=== PATIENT | female | born 2000 | race Caucasian/White ===

== ENCOUNTER 2023-01-17 19:12 | Inpatient (IN) ==
[2023-01-17 20:14] LABS: Appearance Urine Clear (Clear); Bilirubin Urine Negative (Negative); Blood Urine Negative (Negative); Color Urine Yellow; Glucose Urine UA Negative (Negative); Ketones Urine Negative (Negative); Leukocyte Esterase Urine Negative (Negative); Nitrite Urine Negative (Negative); Protein Urine Negative (Negative); Specific Gravity Urine 1.019 (1.000-1.030); Urobilinogen Urine Negative (Negative)
[2023-01-17 20:16] LABS: Pregnancy Test, Urine Negative (Negative)
[2023-01-17 20:26] LABS: Basophils # (auto) 0.06 K/uL (0.00-0.20); Basophils % (auto) 0.7 %; Eosinophils # (auto) 0.13 K/uL (0.00-0.50); Eosinophils % (auto) 1.5 %; Hemoglobin 15.2 g/dl (12.0-16.0); Immature Granulocytes # (auto) 0.02 K/uL (0.01-0.20); Immature Granulocytes % (auto) 0.2 %; Lymphocytes # (auto) 2.05 K/uL (1.20-3.40); Lymphocytes % (auto) 24.3 %; Mean Corpuscular Hgb Conc 34.5 g/dL (32.0-36.0); Mean Corpuscular Volume 83.8 fL (80.0-100.0); Mean Platelet Volume 9.9 fL (9.4-12.4); Monocytes # (auto) 0.52 K/uL (0.11-0.59); Monocytes % (auto) 6.2 %; Neutrophils # (auto) 5.67 K/uL (1.40-6.50); Neutrophils % (auto) 67.1 %; Platelet Count 316 K/uL (130-400); RDW Coefficient of Variation 12.9 % (11.5-14.5); RDW Standard Deviation 39.7 fL (36.4-46.3); Red Blood Count 5.25 M/uL (4.20-5.40); White Blood Count 8.45 K/ul (4.8-10.8)
[2023-01-17 20:44] LABS: Alanine Aminotransferase 10 U/L (7-52); Albumin Globulin Ratio 1.5 (0.9-2); Albumin Level 4.7 gm/dl (3.4-5.0); Alkaline Phosphatase 70 U/L (34-104); Anion Gap 6 (3-11); Aspartate Aminotransferase 14 U/L (13-39); BUN Creatinine Ratio 21.6 (10-20); Bilirubin,Total 0.3 mg/dl (0.2-1.0); Blood Urea Nitrogen 11 mg/dl (6-23); Calcium 9.2 mg/dl (8.6-10.3); Carbon Dioxide 27 mmol/L (21-32); Chloride 105 mmol/L (98-107); Creatinine Clr Calc Pharmacy 125.3 ml/min; Est GFR (African American) > 150.0 ml/min; Est GFR (Non-African American) 137.5 ml/min; Globulin 3.1 gm/dl (2.5-4.0); Glucose 108 mg/dl (70-99(Fasting)); Potassium 4.1 mmol/L (3.5-5.1); Sodium 138 mmol/L (136-145); Total Protein 7.8 gm/dl (6.0-8.3)
[2023-01-17 20:47] LABS: Acetaminophen < 3 ug/ml (10-30); Salicylate < 3.0 mg/dl (3.0-30)
[2023-01-17 20:49] LABS: Amphetamines+Metham, Urine Neg (Neg); Barbiturates, Urine Neg (Neg); Benzodiazepine, Urine Neg (Neg); Cocaine, Urine Neg (Neg); MDMA (Ecstacy), Urine Neg (Neg); Methadone, Urine Neg (Neg); Opiate, Urine Neg (Neg); Phencyclidine, Urine Neg (Neg)
--- NOTE | 2023-01-17 21:44 | Emergency Department Note ---
Impression & Plan Depression, Suicidal ideation ED Provider Note NAME: ADALGISA HILLS AGE: 22 SEX: F ARRIVES VIA: Walk-In INFORMANT: Patient ED PROVIDER(S): Rene Lawson MD CHIEF COMPLAINT: Depression, suicidal ideation PLAN: Disposition: Inpatient psychiatric admission, 3S. MEDICAL DECISION MAKING: The patient is a 22-year-old woman, [employer] student who presents to the emergency department via walk-in for evaluation of worsening depression and suicidal ideation which occurs in the setting of breaking up with her boyfriend last night but already feeling overwhelmed about returning to school. She reports she has had intermittent thoughts of hurting herself by cutting. She reports prior history when she was younger of depression and suicidal ideation. She reports she is not on medications because she reports that her parents have been against this and does not feel comfortable opening up about her mental health with her family. The patient reports she lives in the dorms by herself. She feels as though she is "not good enough". The patient reports that she feels that she cannot be alone by herself at this time as she would feel unsafe. She has any recent illness including fevers, chills, cough, congestion, GI/ symptoms. On my evaluation accompanied by mental health block and case maker the patient is melancholy appearing in no acute distress, afebrile stable vital signs. She endorses depression and intermittent suicidal ideation. She denies current active thoughts of suicidal ideation but did have thoughts of cutting herself to last week. She is in agreement with voluntary psychiatric admission. WBC, H/H and platelets within normal limits. Chemistry without metabolic acidosis. Electrolytes LFTs unremarkable. TSH within normal limits. UA without evidence of infection. Drug screen was unremarkable. COVID-19 RNA, FRANCISCA test was negative. Patient is medically cleared. Referral will be placed for inpatient psychiatric treatment. Patient was evaluated by 3S. and was excepted for inpatient psychiatric treatment. 201 was signed. Triage Nursing notes reviewed and agree them. Prior/outside medical records reviewed Vital Signs: reviewed Differential diagnosis: Mood disorder, infection, hypoglycemia, electrolyte abnormalities, cardiac sources, intracerebral event, toxicologic, trauma, neurologic, as well as other pathologies. ER treatment provided: See below. Laboratory studies: See below HPI: The patient is a 22-year-old woman, [employer] student who presents to the emergency department via walk-in for evaluation of worsening depression and suicidal ideation which occurs in the setting of breaking up with her boyfriend last night but already feeling overwhelmed about returning to school. She reports she has had intermittent thoughts of hurting herself by cutting. She reports prior history when she was younger of depression and suicidal ideation. She reports she is not on medications because she reports that her parents have been against this and does not feel comfortable opening up about her mental health with her family. The patient reports she lives in the dorms by herself. She feels as though she is "not good enough". The patient reports that she feels that she cannot be alone by herself at this time as she would feel unsafe. She has any recent illness including fevers, chills, cough, congestion, GI/ symptoms. ROS: See above HPI for pertinent positives & negatives. A total of 10 systems reviewed and were otherwise negative. VITALS:See Below PHYSICAL EXAMINATION: GENERAL: Awake, alert, melancholy-appearing, in no distress HENT: Normocephalic, atraumatic. Oropharynx unremarkable. EYES: Normal conjunctiva. Sclera non-icteric. NECK: Supple. No nuchal rigidity. FROM. No JVD. RESPIRATORY: Clear to auscultation. CARDIAC: Regular rate, normal rhythm. Extremities warm and well perfused. Pulses equal. ABDOMEN: Soft, non-distended. No tenderness to palpation. No rebound or guarding. No masses. RECTAL: Deferred. MUSCULOSKELETAL: Chest examination reveals no tenderness. The back is symmetrical on inspection without obvious abnormality. There is no CVA tenderness to palpation. No joint edema. LOWER EXTREMITIES: Calves are equal size bilaterally and non-tender. No edema. No discoloration. NEURO: Normal sensorium. No sensory or motor deficits noted. SKIN: No rash or jaundice noted. PSYCH: Endorses depression, intermittent suicidal ideation. Rene Lawson MD Past Med/Surg History Medical History Depression Surgical History No significant past surgical history Social History Smoking Status: Never smoker Preferred Language: Turkmen [employer] Required: No Beliefs That Will Affect Care: None marital status: Single current occupational status: student Feels Safe at Home: Yes Gender Identity: Female Assistive Devices: Glasses Allergies Allergies Allergy/AdvReac Type Severity Reaction Status Date / Time No Known Allergies Allergy Verified 08/03/22 23:31 Home Meds Home Medications Medication Instructions Recorded Confirmed No Known Home Medications 08/03/22 08/03/22 Results & Data (ED) Vital Signs Vital Signs - 24 hr 01/17/23 19:26 01/17/23 23:15 Temperature 36.9 C Temperature Source Temporal Artery Scan Pulse Rate 107 H Respiratory Rate 16 Blood Pressure 127/83 Blood Pressure Mean 97 Pulse Oximetry 99 Oxygen Delivery Method Room Air Room Air Sepsis Recent Fever Within 48 Hours No Sepsis New/Unexplained Change in Mental Status N/A Sepsis Action Taken by Nursing No Action Required Laboratory Data Attestation: I reviewed the patient's lab results. 01/17/23 20:00 01/17/23 20:00 Lab Results 01/17/23 01/17/23 01/17/23 Range/Units 19:45 19:45 19:55 WBC (4.8-10.8) K/ul RBC (4.20-5.40) M/uL Hgb (12.0-16.0) g/dl Hct (37.0-47.0) % MCV (80.0-100.0) fL MCH (25.0-34.0) pg MCHC (32.0-36.0) g/dL RDW Std Deviation (36.4-46.3) fL RDW Coeff of Geovanny (11.5-14.5) % Plt Count (130-400) K/uL MPV (9.4-12.4) fL Immature Gran % (Auto) % Neut % (Auto) % Lymph % (Auto) % [place] % (Auto) % Eos % (Auto) % Baso % (Auto) % Neut # (Auto) (1.40-6.50) K/uL Lymph # (Auto) (1.20-3.40) K/uL [place] # (Auto) (0.11-0.59) K/uL Eos # (Auto) (0.00-0.50) K/uL Baso # (Auto) (0.00-0.20) K/uL Immature Gran # (Auto) (0.01-0.20) K/uL Sodium (136-145) mmol/L Potassium (3.5-5.1) mmol/L Chloride (98-107) mmol/L Carbon Dioxide (21-32) mmol/L Anion Gap (3-11) BUN (6-23) mg/dl Creatinine (0.6-1.2) mg/dl Est Cr Clr Drug Dosing ml/min Est GFR ( Amer) ml/min Est GFR (Non-Af Amer) ml/min BUN/Creatinine Ratio (10-20) Glucose (70-99(Fasting)) mg/dl Calcium (8.6-10.3) mg/dl Total Bilirubin (0.2-1.0) mg/dl AST (13-39) U/L ALT (7-52) U/L Alkaline Phosphatase (34-104) U/L Total Protein (6.0-8.3) gm/dl Albumin (3.4-5.0) gm/dl Globulin (2.5-4.0) gm/dl Albumin/Globulin Ratio (0.9-2) TSH (0.300-4.500) uIu/ml Urine Color Yellow Urine Appearance Clear (Clear) Urine pH 6.0 (4.5-7.5) Ur Specific [place] 1.019 (1.000-1.030) Urine Protein Negative (Negative) Urine Glucose (UA) Negative (Negative) Urine Ketones Negative (Negative) Urine Blood Negative (Negative) Urine Nitrite Negative (Negative) Urine Bilirubin Negative (Negative) Urine Urobilinogen Negative (Negative) Ur Leukocyte Esterase Negative (Negative) Urine Test (Negative) Salicylates (3.0-30) mg/dl Urine Opiates Screen Neg (Neg) Ur Methadone, Qual Neg (Neg) Acetaminophen (10-30) ug/ml Urine Barbiturates Neg (Neg) Ur Phencyclidine (PCP) Neg (Neg) U Amphetamin/Meth Scrn Neg (Neg) MDMA (Ecstasy) Screen Neg (Neg) U Benzodiazepines Scrn Neg (Neg) Ur Cocaine Metabolite Neg (Neg) U Marijuana (THC) Screen Neg (Neg) Ethyl Alcohol mg/dL (<10.0) mg/dl SARS-CoV-2, RNA, NAAT NEGATIVE (NEGATIVE) 01/17/23 01/17/23 01/17/23 Range/Units 19:59 20:00 20:00 WBC 8.45 (4.8-10.8) K/ul RBC 5.25 (4.20-5.40) M/uL Hgb 15.2 (12.0-16.0) g/dl Hct 44.0 (37.0-47.0) % MCV 83.8 (80.0-100.0) fL MCH 29.0 (25.0-34.0) pg MCHC 34.5 (32.0-36.0) g/dL RDW Std Deviation 39.7 (36.4-46.3) fL RDW Coeff of Geovanny 12.9 (11.5-14.5) % Plt Count 316 (130-400) K/uL MPV 9.9 (9.4-12.4) fL Immature Gran % (Auto) 0.2 % Neut % (Auto) 67.1 % Lymph % (Auto) 24.3 % [place] % (Auto) 6.2 % Eos % (Auto) 1.5 % Baso % (Auto) 0.7 % Neut # (Auto) 5.67 (1.40-6.50) K/uL Lymph # (Auto) 2.05 (1.20-3.40) K/uL [place] # (Auto) 0.52 (0.11-0.59) K/uL Eos # (Auto) 0.13 (0.00-0.50) K/uL Baso # (Auto) 0.06 (0.00-0.20) K/uL Immature Gran # (Auto) 0.02 (0.01-0.20) K/uL Sodium 138 (136-145) mmol/L Potassium 4.1 (3.5-5.1) mmol/L Chloride 105 (98-107) mmol/L Carbon Dioxide 27 (21-32) mmol/L Anion Gap 6 (3-11) BUN 11 (6-23) mg/dl Creatinine 0.51 L (0.6-1.2) mg/dl Est Cr Clr Drug Dosing 125.3 ml/min Est GFR ( Amer) > 150.0 ml/min Est GFR (Non-Af Amer) 137.5 ml/min BUN/Creatinine Ratio 21.6 H (10-20) Glucose 108 H (70-99(Fasting)) mg/dl Calcium 9.2 (8.6-10.3) mg/dl Total Bilirubin 0.3 (0.2-1.0) mg/dl AST 14 (13-39) U/L ALT 10 (7-52) U/L Alkaline Phosphatase 70 (34-104) U/L Total Protein 7.8 (6.0-8.3) gm/dl Albumin 4.7 (3.4-5.0) gm/dl Globulin 3.1 (2.5-4.0) gm/dl Albumin/Globulin Ratio 1.5 (0.9-2) TSH (0.300-4.500) uIu/ml Urine Color Urine Appearance (Clear) Urine pH (4.5-7.5) Ur Specific [place] (1.000-1.030) Urine Protein (Negative) Urine Glucose (UA) (Negative) Urine Ketones (Negative) Urine Blood (Negative) Urine Nitrite (Negative) Urine Bilirubin (Negative) Urine Urobilinogen (Negative) Ur Leukocyte Esterase (Negative) Urine Test Negative (Negative) Salicylates (3.0-30) mg/dl Urine Opiates Screen (Neg) Ur Methadone, Qual (Neg) Acetaminophen (10-30) ug/ml Urine Barbiturates (Neg) Ur Phencyclidine (PCP) (Neg) U Amphetamin/Meth Scrn (Neg) MDMA (Ecstasy) Screen (Neg) U Benzodiazepines Scrn (Neg) Ur Cocaine Metabolite (Neg) U Marijuana (THC) Screen (Neg) Ethyl Alcohol mg/dL (<10.0) mg/dl SARS-CoV-2, RNA, NAAT (NEGATIVE) 01/17/23 01/17/23 01/17/23 Range/Units 20:00 20:00 20:00 WBC (4.8-10.8) K/ul RBC (4.20-5.40) M/uL Hgb (12.0-16.0) g/dl Hct (37.0-47.0) % MCV (80.0-100.0) fL MCH (25.0-34.0) pg MCHC (32.0-36.0) g/dL RDW Std Deviation (36.4-46.3) fL RDW Coeff of Geovanny (11.5-14.5) % Plt Count (130-400) K/uL MPV (9.4-12.4) fL Immature Gran % (Auto) % Neut % (Auto) % Lymph % (Auto) % [place] % (Auto) % Eos % (Auto) % Baso % (Auto) % Neut # (Auto) (1.40-6.50) K/uL Lymph # (Auto) (1.20-3.40) K/uL [place] # (Auto) (0.11-0.59) K/uL Eos # (Auto) (0.00-0.50) K/uL Baso # (Auto) (0.00-0.20) K/uL Immature Gran # (Auto) (0.01-0.20) K/uL Sodium (136-145) mmol/L Potassium (3.5-5.1) mmol/L Chloride (98-107) mmol/L Carbon Dioxide (21-32) mmol/L Anion Gap (3-11) BUN (6-23) mg/dl Creatinine (0.6-1.2) mg/dl Est Cr Clr Drug Dosing ml/min Est GFR ( Amer) ml/min Est GFR (Non-Af Amer) ml/min BUN/Creatinine Ratio (10-20) Glucose (70-99(Fasting)) mg/dl Calcium (8.6-10.3) mg/dl Total Bilirubin (0.2-1.0) mg/dl AST (13-39) U/L ALT (7-52) U/L Alkaline Phosphatase (34-104) U/L Total Protein (6.0-8.3) gm/dl Albumin (3.4-5.0) gm/dl Globulin (2.5-4.0) gm/dl Albumin/Globulin Ratio (0.9-2) TSH 1.439 (0.300-4.500) uIu/ml Urine Color Urine Appearance (Clear) Urine pH (4.5-7.5) Ur Specific [place] (1.000-1.030) Urine Protein (Negative) Urine Glucose (UA) (Negative) Urine Ketones (Negative) Urine Blood (Negative) Urine Nitrite (Negative) Urine Bilirubin (Negative) Urine Urobilinogen (Negative) Ur Leukocyte Esterase (Negative) Urine Test (Negative) Salicylates < 3.0 L (3.0-30) mg/dl Urine Opiates Screen (Neg) Ur Methadone, Qual (Neg) Acetaminophen < 3 L (10-30) ug/ml Urine Barbiturates (Neg) Ur Phencyclidine (PCP) (Neg) U Amphetamin/Meth Scrn (Neg) MDMA (Ecstasy) Screen (Neg) U Benzodiazepines Scrn (Neg) Ur Cocaine Metabolite (Neg) U Marijuana (THC) Screen (Neg) Ethyl Alcohol mg/dL < 10.0 (<10.0) mg/dl SARS-CoV-2, RNA, NAAT (NEGATIVE) Administered Medications Hydroxyzine HCl (Hydroxyzine Hcl 25 Mg Tab) 50 mg PO HSZ PRN PRN Reason: Insomnia Stop: 02/16/23 23:55 Last Admin: 01/18/23 00:40 Dose: 50 mg Documented By: KAYLYNN Discharge Plan Visit Data Chief Complaint: Mental Health Evaluation Stated Complaint: MHE ED Provider: Rene Lawson Discharge Problem: Depression, Suicidal ideation Patient Disposition: Admitted As Inpatient Discharge Instructions Interventions: ED Discharge Assessment Last Done: 01/17/23 23:15
[2023-01-17] MEDS ORDERED: ALUMINUM/MAGNESIUM SUSP 30 ML UDC PO PRN (23:56)
[2023-01-17] MEDS ORDERED: SODIUM CHLORIDE 0.65% NA SOLN 45 ML (OCEAN) PRN (23:56)
[2023-01-17] MEDS ORDERED: MAGNESIUM HYDROXIDE SUSP 30 ML UDC PO PRN (23:56)
[2023-01-17] MEDS ORDERED: hydrOXYzine HCl 25 MG TAB PO PRN (23:56)
[2023-01-17] MEDS ORDERED: ACETAMINOPHEN 325 MG TAB PO PRN (23:56)
[2023-01-17] MEDS ORDERED: BISMUTH SUBSALICYLATE LIQD 236 ML PO PRN (23:56)
[2023-01-18] MEDS: hydrOXYzine HCl 25 MG TAB PO PRN (00:40)
[2023-01-18 01:06] VITALS: O2SAT 100
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
[2023-01-19] MEDS: hydrOXYzine HCl 25 MG TAB PO PRN ×2 (00:16→23:14)
--- NOTE | 2023-01-19 09:10 | Psychiatric Progress Note ---
Date of Service January 19, 2023 Impression / Recommendations Impression 22 y/o overachieving F with history of depression, anxiety, PTSD who is now more overextended in terms of obligations than she can manage and has dropped out of psychotherapy. She has never had medication treatment and, although she'd reported at presentation that she was interested in medication, now voices some ambivalence. 01/19/2023: Despite having presented with initial report of wanting medication trial, has remained ambivalent about this, somewhat grudgingly agreeing to start escitalopram. Has exhibited help-rejecting complaining in terms of non- medication treatments as well. Has announced that they're non-binary (which required a room change) and would like to be addressed as Chau. This was seen as somewhat provocative by some other patients, especially as it was brought up during a group when it seemed incongruous and [id number]. Has agreed to recommended additional testing (vitamin levels, esr). 01/18/2023: Reviewed trial of the SSRI escitalopram as an appropriate treatment for MDD and PTSD. She agreed to consider this. (1) Major depressive disorder, recurrent, severe without psychotic features: (2) ZAHIDA (generalized anxiety disorder): (3) Post-traumatic stress disorder, chronic: (4) Suicidal ideation: Plan The patient was admitted to the [facility] ([facility]) on q15 min checks (behavioral with suicide precautions) for safety. The patient will participate in group, recreational, and milieu therapies and will be offered additional individual and family sessions as clinically appropriate. 01/19/2023: * escitalopram 5 mg daily * additional lab, including * b12 * folate * vitamin d * esr 01/18/2023: * encourage trial of escitalopram * recommended additional tests (vitamin levels, esr) to which pt is hesitant to agree due to not liking needles Inventory Assets Strengths: voluntary, intelligent, employed Needs: safety and stabilization, medication adjustment, additional coping skills, increased outpatient services Suicide Risk Level Suicide Risk Level: Moderate (q15 min suicide checks) Suicide Risk Level Comments: ego-dystonic passive suicidal thoughts; readily contracts for safety Risk Factors Assessment Do You Have Access To A Gun?: No Protective Factors Assessment Employed: Yes (multiple jobs) Interval History Identifying Information ADALGISA HILLS is a 22-year-old F who currently lives in student dorm alone, has a history of depression, and was admitted on 01/18/23 00:05 on a 201 voluntary commitment for thoughts of suicide and self-harm. Chief Complaint "I think I'm probably codependent". Review of Systems Sleep Information Total Hours of Sleep: 5.5 Sleep Comments: Late admission overnight Meal Information Percent Meal Consumed - Breakfast: 0 Percent Meal Consumed - Lunch: 100 Percent Meal Consumed - Dinner: 15 Subjective Subjective Patient was seen & assessed and interval progress reviewed in a multidisciplinary team meeting with the treatment team. For details, see the "Impression" section. Physical Exam Psychiatric Orientation: alert, oriented to person, oriented to place, oriented to time and cooperative Apperance: appropriately dressed, appropriately groomed and appeared stated age Eye Contact: + fair eye contact Motor Behavior: + psychomotor retardation Speech: normal rate/rhythm/volume of speech Affect: + depressed affect and + anxious affect Mood: + depressed mood and + anxious mood Thought Process: + tangential thought process and thought association intact Thought Content: + cognitive distortions, reality based without delusions, + hopelessness, + worthlessness, + loneliness and + self deprecation Suicidal Thoughts: denies suicidal plan and denies suicidal intent; + reports suicidal thoughts (ego-dystonic, intrusive thoughts recently) Homicidal Thoughts: denies homicidal thoughts Hallucinations: no auditory hallucinations and no visual hallucinations Cognition: recent memory grossly intact, remote memory grossly intact, attention grossly intact and language grossly intact Estimated Intelligence: consistent with education level Insight: + fair insight Judgment: + fair judgement Vital Signs (Past 24 Hours) Last Vital Signs Temp 36.7 C 01/19/23 06:27 Pulse 85 01/19/23 06:28 Resp 16 01/19/23 06:27 BP 107/75 01/19/23 06:28 Pulse Ox 100 01/18/23 00:30 O2 Del Method Room Air 01/18/23 00:30 Results & Data ([facility]) Current Inpatient Medications Current Inpatient Medications: Current Inpatient Medications Acetaminophen (Acetaminophen 325 Mg Tab) 650 mg PO Q4H PRN PRN Reason: Headache or Minor Fever Stop: 02/16/23 23:55 Al Hydrox/Mg Hydrox/Simethicone (Aluminum/Magnesium Susp 30 Ml Udc) 30 ml PO Q4H PRN PRN Reason: GI Upset Stop: 02/16/23 23:55 Bismuth Subsalicylate (Bismuth Subsalicylate Liqd 236 Ml) 15 ml PO PRN PRN PRN Reason: Loose Stool Stop: 02/16/23 23:55 Hydroxyzine HCl (Hydroxyzine Hcl 25 Mg Tab) 50 mg PO HSZ PRN PRN Reason: Insomnia Stop: 02/16/23 23:55 Last Admin: 01/19/23 00:16 Dose: 50 mg Hydroxyzine HCl (Hydroxyzine Hcl 25 Mg Tab) 25 mg PO Q4H PRN PRN Reason: Anxiety Stop: 02/16/23 23:55 Magnesium Hydroxide (Magnesium Hydroxide Susp 30 Ml Udc) 30 ml PO DAILY PRN PRN Reason: Constipation Stop: 02/16/23 23:55 Sodium Chloride (Sodium Chloride 0.65% Na Soln 45 Ml ([place])) 1 - 2 sprays NA PRN PRN PRN Reason: Nasal Dryness/Congestion Stop: 02/16/23 23:55 Mental Health & Subst Abuse Tx Therapist Name of Therapist: N/A Department Coordinator Name of Department Coordinator: N/A
[2023-01-19 23:20] LABS: Folate (Folic Acid),Ser orPlas 18.32 ng/ml (>5.38)
[2023-01-20 06:35] VITALS: BP 96/65; PULSE 101; TEMP 97.7
[2023-01-20] MEDS ORDERED: ESCITALOPRAM OXALATE 10 MG TAB PO SCH (09:00)
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
[2023-01-20] MEDS ORDERED: ERGOCALCIFEROL 50,000 UNITS 1250 MCG CAP PO SCH (10:15)
--- NOTE | 2023-01-21 10:34 | Coding Query ---
CODING QUERY To promote full compliance with coding requirements relating to patient care, provider participation is requested in all cases of certified professional coder uncertainty. Please assist us with the question(s) below: Coding Question(s): The H&P, Progress Note and Discharge Summary, under Hospital Course, document, "Major depressive disorder, recurrent, severe without psychotic features", however, the Discharge Summary documents, "Major Depressive Disorder, Recurrent, Severe, with Psychotic Features" in the Principal Diagnosis area. Due to conflicting documentation, please specify below, in your clinical opinion, regarding the Depressive Disorder diagnosis: (X) Major Depressive Disorder, Recurrent, Severe, with Psychotic Features ( ) Major Depressive Disorder, Recurrent, Severe, without Psychotic Features ( ) Other: Please Specify Physician's Response(s): it should be Major Depressive Disorder, Recurrent, Severe, with Psychotic Features Thank you Nena Palma Principal Diagnosis: "that condition established after study, to be chiefly responsible for occasioning the admission of the patient to the hospital for care." Co-Existing Principal Diagnosis: "when two or more diagnoses equally meet the criteria for principal diagnosis as determined by the circumstances of admission, diagnostic work up, and/or therapy provided, and the Alphabetic Index, Tabular List, or another coding guideline does not provide sequencing direction, any one of the diagnoses may be sequenced first." "When the physician has documented what appears to be a current diagnosis in the body of the record, but has not included the diagnosis in the final diagnostic statement, the physician should be asked whether the diagnosis should be added." (Source Coding Clinic 2 QTR90. p3-4) [facility]
== END 2023-01-20 13:50 | disposition home or self-care (01) | DRG 885 ==
LOC: ED 19:12 → 3S 23:15